=== PATIENT | male | born 1975 | race Caucasian/White ===

== ENCOUNTER → 2018-06-25 | Outpatient (CLI) | payer OTHER ==
[~2018-06-25] MED LIST: CETI10CA PO; CYCL10TA2 PO; NAPR-683 PO; RANI-376 PO; TRAZ-118 PO
--- NOTE | 2018-06-26 02:29 | PAIN ---
DATE OF SERVICE: 06/25/2018 INITIAL CONSULTATION FOR PAIN CLINIC CHIEF COMPLAINT: Low back and bilateral lower extremity pain, right greater than left. HISTORY OF PRESENT ILLNESS: The patient is a 42-year-old male who presents with history of pain for about 15 years, worse over the past 1 year without any specific injury or accident that he is aware of, but increasing pain with time in the low back, right lower extremity, mostly in the lateral hip, anterior thigh, medial thigh, medial lower leg and medial calf and numbness and tingling into the foot and great toe on the right side at times. The patient reports years are running in the . 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 No one incident or specific injury that he is aware of, but multiple injuries over the years and times of increased stress on his back and legs. 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 He has to stop and rest, to get off the bike to decrease the pain. The patient reports it is worse with walking, standing, changing positions, climbing stairs with his right leg, awakening him from sleep at least 3-4 times at night. The patient reports it does not affect his bowel or bladder control, does affect his ability to walk more than about 15-20 minutes. The patient reports he can still walk about a mile or so, but the pain becomes more unbearable at that time and he has to rest. It is better with sitting or lying down, but again waking him from sleep fairly frequently. The patient did have MRI scan of the lumbar spine showing L4-L5 mild degenerative disk disease with mild broad-based disk bulge, moderate right foraminal narrowing with slight contact of the exiting right L4 nerve root. L5 shows mild degenerative disk disease with mild broad-based disk bulge without central canal stenosis, but mild bilateral foraminal narrowing. The patient rates his disability rate from 0-10, 10 being the worst, is an 8 with family and home responsibilities, 10 with recreation, 3 with social activity, 9 with occupation, 7 with sexual behavior, 4 with self-care and 2 with life support activities. The patient has tried Flexeril, Naprosyn as well as narcotic pain medicine, which did not help significantly. The patient reports the Flexeril and Naprosyn does decrease the pain by about 20-30%. The patient has had physical therapy, is still doing physical therapy exercises, which he does daily. He had multiple physical therapies over the years starting in 2004, but without significant long-term decrease in pain or improvement. PAST MEDICAL HISTORY: Significant for dizziness, arthritis. Otherwise, the patient had been in very good health. PREVIOUS SURGERY: Include inguinal hernia repair in 2013. CURRENT MEDICATIONS: Include Flexeril, naproxen, Zyrtec, trazodone, and Zantac. ALLERGIES: The patient has no known drug allergies. FAMILY HISTORY: Significant for diabetes. SOCIAL HISTORY: The patient does not drink alcohol, does not smoke, does not use any illegal, illicit or recreational drugs. He is , lives with his spouse, lives locally in [place], [place]. He is active army duty. REVIEW OF SYSTEMS: The patient's review of systems is positive for those items mentioned in history of present illness. All systems reviewed and otherwise negative. It is complete, full and well documented on the patient's chart. PHYSICAL EXAMINATION: VITAL SIGNS: The patient's blood pressure is 142/68, pulse is 55, respirations 18, temperature 98.2 degrees Fahrenheit, height is 77.5 inches, weight is 240 pounds. GENERAL: The patient is awake, alert, oriented, appropriate, very pleasant demeanor. HEENT: Shows normocephalic, atraumatic. Extraocular movements are intact and symmetrical. Oral cavity: Mucous membranes moist and pink. Dentition is intact. NECK: Shows anterior throat supple without palpable lymphadenopathy noted. Swallow reflex is symmetrical. CHEST: Shows normal with inspection. Breath sounds are clear to auscultation bilaterally. HEART: Shows S1, S2 clear. No murmurs auscultated. ABDOMEN: Soft, nontender, nondistended. No palpable organomegaly is noted. No rebound or guarding demonstrated. BACK: Shows spine grossly in the midline. Normal appearing thoracic kyphosis and lumbar lordotic curvature. Lumbar paraspinous muscle shows symmetrical on inspection. On palpation shows some moderate tenderness diffusely, but only with deeper palpation in the middle and lower distribution of the paraspinous musculature without trigger points, without radiation. The patient has good rotational motion of lumbar spine, both laterally greater than 10 degrees right and left as well as extension greater than 10 degrees, forward flexion 45 degrees without significant pain reported. The patient shows no tenderness over the spinous processes, sacrum or sacroiliac regions. EXTREMITIES: The patient's lower extremities show deep tendon reflexes at 2+ in the patellar, 1+ tendo calcaneus tendons. Motor exam is strong with 5/5 dorsiflexion, extension, quadriceps and hamstring flexion, equal and symmetrical. Peripheral pulses are 1+ posterior tibia. No peripheral edema is noted. Lower extremities are warm and dry to touch, equal in color and appearance. Straight leg raise noted to be positive on the right about 40 degrees with decrease in knee flexion. Left side is negative. Gaenslen's and Santi's maneuvers are negative bilaterally. The patient is able to stand, stand on his toes without difficulty or loss of balance, walks with a normal-appearing gait, not using any assistive devices to ambulate such as canes or walkers. SKIN: Warm and dry, good turgor. No edema. No sores, rashes or bruising. IMPRESSION: This is a 42-year-old male with: 1. Long history of low back pain, right lower extremity pain greater than left in a radicular fashion. L4-L5 dermatomal distribution. 2. MRI scan of lumbar spine as noted. 3. History of arthritis. PLAN: Options were discussed with the patient including conservative medical management, physical therapy, interventional techniques. He would like to pursue interventional techniques as he is doing physical therapy currently and doing stretching and exercising daily. We will schedule the patient for a preauthorization for lumbar epidural steroid injection as he has done well with these in the past by his report. We described the procedure using description as well as anatomical models to describe it and the patient will wait for preauthorization. We will have him return for a lumbar epidural steroid injection at that time. ALEXY LOPEZ MD DR: VERO/duncan JOB#: [id number] / [id number]
== END | disposition home or self-care (01) ==
LOC: PNCL 10:25
PROVIDERS: ATTEND Anesthesiology
DX: M79.604 Pain in right leg (principal); M79.605 Pain in left leg; M54.5 Low back pain; M19.90 Unspecified osteoarthritis, unspecified site; Z79.899 Other long term (current) drug therapy; Z98.890 Other specified postprocedural states
CPT/HCPCS: G0463

== ENCOUNTER → 2018-07-01 | Outpatient (CLI) | payer OTHER ==
[~2018-07-01] MED LIST changes: +IOHEXOL 180 MG/ML 10 ML VIAL. ONE; +methylPREDNISolone ACETATE 40 MG/ML VIAL. ONE; +methylPREDNISolone ACETATE 80 MG/ML VIAL. ONE
--- NOTE | 2018-07-01 22:06 | PAIN ---
DATE OF SERVICE: 07/01/2018 PROGRESS NOTE FOR PAIN CLINIC: DIAGNOSES: Lumbar radiculopathy with lumbar degenerative disk disease. HISTORY OF PRESENT ILLNESS: The patient is a 42-year-old male who returns for followup status post initial evaluation and preauthorization for lumbar epidural steroid injection. The patient reports still significant pain in low back, more on the right than the left into the right posterior gluteus, posterolateral thigh, lateral anterior thigh, medial thigh, medial lower leg and across the low back. The patient reports it as a 9 on a scale of 10 at its worst, 6 on average, 3 at its least over the past week and is a 6 today. The patient reports it is aching, sharp, dull, shooting, stabbing, radiating, sometimes constant, unbearable when exercising. The patient is a competitive bicyclist and was riding about 55 miles a few days back when the pain began to become unbearable when he had to stop and get off and walk. The patient reports otherwise no new motor or sensory deficits. Still wakes him from sleep at night occasionally, but not every night and it is usually only about every 6-8 hours. PHYSICAL EXAMINATION: VITAL SIGNS: Today, the blood pressure is 152/96, pulse 56, respirations are 20, temperature 97.6 degrees Fahrenheit, height 69.5 inches, weight is 240 pounds. GENERAL: The patient is awake, alert, oriented, appropriate, very pleasant demeanor. HEENT: Head shows normocephalic, atraumatic. Extraocular movements are intact and symmetrical. Oral cavity: Mucous membranes moist and pink. Dentition is intact. NECK: Shows anterior throat supple without palpable lymphadenopathy noted. Swallow reflex symmetrical. CHEST: Shows normal with inspection. Breath sounds are clear to auscultation bilaterally. HEART: Shows S1, S2 clear. No murmurs auscultated. ABDOMEN: Soft, nontender, nondistended. No palpable organomegaly is noted. No rebound or guarding demonstrated. BACK: Shows spine grossly in the midline. Normal appearing thoracic kyphosis and lumbar lordotic curvature. Lumbar paraspinous muscle shows symmetrical on inspection. On palpation shows some moderate tenderness diffusely without specific radiation, no trigger points. The patient has good rotational motion of lumbar spine, both laterally as well as extension and flexion without difficulty. EXTREMITIES: Lower extremities show deep tendon reflexes at 2+ in the patellar, 1+ tendo-calcaneus tendons. Motor exam is strong with 5/5 dorsiflexion, extension, quadriceps and hamstring flexion are equal. Peripheral pulses are 1+ posterior tibial. No peripheral edema is noted bilaterally. Options were discussed with the patient. The patient's old chart was reviewed as his current medication regimen updated. Current review of systems updated today as well. We will proceed with a lumbar epidural steroid injection today, first in this series with fluoroscopic guidance. Risks were again discussed including, but not limited to bleeding, infection, possibility of epidural hematoma and subsequent neurological compromise, dural puncture headaches, spinal cord and/or nerve damage, side effects of steroid medication and poor results regarding pain control. The patient understands and wished to proceed. The patient will return to clinic in approximately 2 weeks for followup, was counseled as to return appointment, activity level and side effects to be aware of. DIAGNOSES: Lumbar radiculopathy with lumbar degenerative disk disease. PROCEDURE: Lumbar epidural steroid injection, translaminar approach L4-L5 level using C-arm fluoroscopy guidance under sterile prep and drape using local anesthetic. MEDICATION INJECTED: A total of 120 mg Depo-Medrol plus 10 mL of preservative-free normal saline and 2 mL of Isovue for contrast. CONDITION AT DISCHARGE: Stable. The patient tolerated the procedure well, had no complications. ALEXY LOPEZ MD DR: VERO/duncan JOB#: [id number] / [id number]
== END | disposition home or self-care (01) ==
LOC: PNCL 08:05
PROVIDERS: ATTEND Anesthesiology
DX: M51.16 Intervertebral disc disorders with radiculopathy, lumbar region (principal)
CPT/HCPCS: 62323; J1030; J1040; Q9965

== ENCOUNTER → 2018-07-15 | Outpatient (CLI) | payer OTHER ==
[~2018-07-15] MED LIST changes: -IOHEXOL 180 MG/ML 10 ML VIAL. ONE; -methylPREDNISolone ACETATE 40 MG/ML VIAL. ONE; -methylPREDNISolone ACETATE 80 MG/ML VIAL. ONE
--- NOTE | 2018-07-16 | PAIN ---
DATE OF SERVICE: 07/15/2018 PROGRESS NOTE FOR PAIN CLINIC DIAGNOSIS: Lumbar radiculopathy with lumbar degenerative disk disease. HISTORY OF PRESENT ILLNESS: The patient is a 43-year-old male who returns for followup status post lumbar epidural steroid injection x 1. The patient reports about 60% improvement after the first injection with good increase in activity and physical tolerance. He has been doing some bicycle riding and with much greater ease and comfort. Reports that walking better greater distances, doing work activities, household activities, traveling with greater ease and comfort as well and riding his bike most notably with better ease and comfort. The patient reports still pain in the low back and the right leg. It is aching and dull, radiating to the lower extremity, the lateral anterior thigh, anterior medial thigh, medial knee but again much less severe than on previous exam. The patient reports she is doing well at night, does not awaken him from sleep, better with sitting and lying down, worse with standing, walking and bicycling. The patient reports the pain over the past week at the worst is a 6 on a scale of 10, 4 on average and 1 at its least and is a 1 today. The patient reports no new motor or sensory deficits, no new bowel or bladder incontinence or other complaints. PHYSICAL EXAMINATION: VITAL SIGNS: The patient's blood pressure is 140/82, pulse 76, respirations are 20 and temperature 98.2 degrees Fahrenheit. Height is 69.5 inches and weight is 245 pounds. GENERAL: The patient is awake, alert, oriented, appropriate and very pleasant demeanor. HEENT: Head shows normocephalic and atraumatic. Extraocular movements are intact and symmetrical. Oral cavity, mucous membranes are moist and pink. Dentition is intact. NECK: Shows anterior throat supple without palpable lymphadenopathy noted. Swallow reflex symmetrical. Neck shows full rotational motion of the cervical spine, both laterally as well as extension and flexion. CHEST: Shows normal with inspection. Breath sounds clear to auscultation bilaterally. HEART: Shows S1 and S2 clear. No murmurs auscultated. ABDOMEN: Soft, nontender and nondistended. No palpable organomegaly is noted. No rebound or guarding demonstrated. BACK: Shows spine grossly in the midline. Lumbar paraspinous musculature shows symmetrical on inspection, on palpation some moderate tenderness diffusely bilaterally in the middle and lower distribution of the lumbar paraspinous muscles, but only diffusely without radiation. The patient shows good rotational motion of the lumbar spine, both laterally greater than 10 degrees, right and left as well as extension greater degrees, forward flexion 45 degrees without significant pain reported. EXTREMITIES: The patient's lower extremities show deep tendon reflexes at 2+ in the patellar, 1+ tendo-calcaneus tendons are equal. Motor exam remains strong with 5/5 dorsiflexion, extension, quadriceps and hamstring flexion and symmetrical as well. Peripheral pulses are 1+. No peripheral edema is noted bilaterally. Options were discussed with the patient. The patient's old chart was reviewed as well as his current medication regimen updated. Current review of systems updated today as well. We will proceed with preauthorization for a second lumbar epidural steroid injection with fluoroscopic guidance. The patient with continued radiculopathy on the right side at L4-L5 dermatomal distribution. We will plan on right L4-L5 translaminar injection for epidural steroid injection and once preauthorization is obtained, we will proceed. The patient will return to the clinic in approximately 1 week to plan on second lumbar epidural steroid injection at that time. ALEXY LOPEZ MD DR: VERO/duncan JOB#: [id number] / [id number]
== END | disposition home or self-care (01) ==
LOC: PNCL 13:20
PROVIDERS: ATTEND Anesthesiology
DX: M51.16 Intervertebral disc disorders with radiculopathy, lumbar region (principal)
CPT/HCPCS: G0463

== ENCOUNTER → 2018-07-22 | Outpatient (CLI) | payer OTHER ==
[~2018-07-22] MED LIST changes: +IOHEXOL 180 MG/ML 10 ML VIAL. ONE; +methylPREDNISolone ACETATE 40 MG/ML VIAL. ONE; +methylPREDNISolone ACETATE 80 MG/ML VIAL. ONE
--- NOTE | 2018-07-22 22:47 | PAIN ---
DATE OF SERVICE: 07/22/2018 PROGRESS NOTE FOR PAIN CLINIC: DIAGNOSES: Lumbar radiculopathy with lumbar degenerative disk disease. HISTORY OF PRESENT ILLNESS: The patient is a 43-year-old male who returns for followup status post lumbar epidural steroid injection x 1. The patient reports at that time approximately 60% improvement, now about 40% improvement overall. The patient is waiting for a preauthorization with his insurance provider and would like to proceed with a second injection today as he has obtained that. Still pain in the low back, right side, right posterior gluteus, lateral thigh, lateral anterior thigh, medial thigh on the right side, reports it is an aching, dull, tight across the back radiating to the leg becoming more constant, worse with walking and standing, change in positions, does not awaken him from sleep at night, however. The patient reports his pain is 6 on a scale of 10 at worst over the past week, 4 an average and 2 at its least and is a 2 today. The patient reports no new motor or sensory deficit. No new bowel or bladder incontinence or other complaints. PHYSICAL EXAMINATION: VITAL SIGNS: Blood pressure 142/88, pulse 55, respirations 18, temperature 97.9 degrees Fahrenheit. Height 69.5 inches, weight is 240 pounds. GENERAL: The patient is awake, alert, oriented, appropriate, very pleasant demeanor. HEENT: Head shows normocephalic, atraumatic. Extraocular movements are intact, symmetrical. Oral cavity: Mucous membranes moist and pink. Dentition is intact. NECK: Shows anterior throat supple without palpable lymphadenopathy noted. Swallow reflex is symmetrical. CHEST: Shows normal on inspection. Breath sounds clear to auscultation bilaterally. HEART: Shows S1, S2 clear. No murmurs auscultated. ABDOMEN: Soft, nontender, nondistended. No palpable organomegaly is noted. No rebound or guarding demonstrated. BACK: Shows spine grossly in the midline. Normal appearing thoracic kyphosis and lumbar lordotic curvature. Lumbar paraspinous musculature shows symmetrical on inspection and on palpation shows some moderate tenderness diffusely, minimally diffusely without radiation. EXTREMITIES: The patient's lower extremities show deep tendon reflexes at 2+ in the patella, 1+ tendo-calcaneus tendons. Motor exam is strong with 5/5 dorsiflexion, extension, equal and symmetrical bilaterally. Peripheral pulses are 1+ posterior tibial. No peripheral edema is noted. Options were discussed with the patient. The patient's old chart was reviewed as his current medication regimen and updated. Current review of systems is updated today as well. We will proceed with a second in the series of lumbar epidural steroid injection today under fluoroscopic guidance. Risks were again discussed including, but not limited to bleeding, infection, possibility of epidural hematoma and subsequent neurological compromise, dural puncture headaches, spinal cord and/or nerve damage, side effects of steroid medication and poor results regarding pain control. The patient understands and wished to proceed. The patient will return to clinic in approximately 2 weeks for followup, was counseled as to return appointment, activity level and side effects to be aware of. DIAGNOSES: Lumbar radiculopathy with lumbar degenerative disk disease. PROCEDURES: Lumbar epidural steroid injection, translaminar approach at the L4-L5 level using C-arm fluoroscopic guidance under sterile prep and drape using local anesthetic. MEDICATION INJECTED: A total of 120 mg Depo-Medrol plus 10 mL of preservative-free normal saline and 2 mL of contrast. CONDITION AT DISCHARGE: Stable. The patient tolerated the procedure well and had no complications. ALEXY LOPEZ MD DR: VERO/duncan JOB#: [id number] / [id number]
== END ==
LOC: PNCL 07:38
PROVIDERS: ATTEND Anesthesiology
DX: M51.16 Intervertebral disc disorders with radiculopathy, lumbar region (principal); M54.5 Low back pain; M79.651 Pain in right thigh
CPT/HCPCS: 62323; J1030; J1040; Q9965